=== PATIENT | male | born 1985 | race Native Hawaiian/Other Pacific Islander ===

== ENCOUNTER 2022-09-07 19:59 | Emergency (ER) | payer OTHER ==
[~2022-09-07] VITALS: Ht 182.9 cm; Wt 90.7 kg
[2022-09-07 20:00] VITALS: BP 177/82; TEMP 99.1
[2022-09-07 20:31] LABS: PLATELET COUNT 271 K/uL (142-355)
[2022-09-07 20:34] LABS: POTASSIUM 3.1 mmol/L (3.6-5.2); SODIUM 135 mmol/L (136-145)
[2022-09-07 20:47] LABS: PARTIAL THROMBOPLASTIN TIME 26.7 SECONDS (24.5-33.6)
== END 2022-09-08 00:20 | disposition home or self-care (01) ==
LOC: ED 19:59
PROVIDERS: Family Medicine
DX: R00.0 Tachycardia, unspecified (principal); E87.6 Hypokalemia; F12.90 Cannabis use, unspecified, uncomplicated
CPT/HCPCS: 80053; 80307; 80320; 81002; 82550; 84484; 85027; 85610; 85730; 93005; 99283